=== PATIENT | female | born 1965 | race Caucasian/White ===

== ENCOUNTER 2017-09-03 10:57 | Emergency (ER) | payer BC ==
[~2017-09-03] VITALS: Ht 172.7 cm; Wt 68.0 kg
--- NOTE | 2017-09-03 11:33 | Urgent Treatment Center Report ---
History of Present Issue Date/Time Seen by Provider 09/03/17 1125 Visit Reason Pt arrived:Walked Presenting Problem:PT ADVISES THAT SHE WAS DX SUNDAY WITH BRONCHITIS AND FEELS THAT SHE NEEDS A NEB TREATMENT RATHER THAN THE INHALER SHE HAS BEEN USING Location if Accident: Onset of symptoms date/time:/ or onset unknown for:MEDICAL HX UNKNOWN Have you (or family members/close friends) recently traveled outside the [place]? N If Yes, where/when: Have you had exposure to infectious disease within the past month? TB? Other? Specify: c/o need for albuterol neb. Doesn't want anything else, "just a neb please". Reports seen at [facility] , 4 days ago, dx bronchial pneumonia. No CXR and does not want a CXR today. Adament only neb treatment and doctor's excuse for work today. Improving w/ steroid injection, steroid pills, antibiotic and inhaler. "I have had this before and just feel like one neb treatment would help me improve even faster". Tried returning to clinic today but they do not administer neb treatments. Nonsmoker. Source patient Exam Limitations no limitations ALLERGIES Coded Allergies: No Known Allergies (09/03/17) History Medical History General CAD? No Angina: No MD: No Hypertension? No Hyperlipidemia? No CHF? No DVT? No PE? No COPD? No Asthma? No Anemia? No GERD? No Gastric ulcers? No GI Bleed? No Hernia? No Thyroid Problems? No Hypothyroidism? No CVA? No Seizures? No Diabetes? No Renal Insuffiency? No UTI? No Stones? No BPH? No GB Disease: No Nephritic Syndrome? No Asplenia? No Hepatitis? No Sickle Cell Disease? No Arthritis? No Migraines? No Cataracts? No Glaucoma? No MRSA? No HIV? No TB? No Anxiety? No Depression? No Cancer? No More? No Immunization HX DT/Tetanus Unknown Surgical Hx Previous Surgery?N Social History Smoking Hx Smoker: Never Smoker Tobacco: No Alcohol Alcohol: No Review of Systems All Other Systems Reviewed and Negative Constitutional see HPI, denies fever, denies malaise Eyes denies drainage ENT denies: ear pain, nose discharge, nose congestion, throat pain. Respiratory see HPI Cardiovascular denies chest pain Musculoskeletal denies joint pain Skin denies rash Psychiatric/Neurological denies headache Physical Exam Vital Signs Vital Signs Date Time Temp Pulse Resp B/P Pulse O2 O2 Flow FiO2 Ox Delivery Rate 09/03 1117 97.9 72 20 131/83 97 General Appearance normal appearance, no apparent distress, active Eye Exam - bilateral eye normal exam Ear, Nose, Throat normal ENT inspection Neck non-tender, supple Respiratory Status Yes: chest symmetrical, non productive cough. No: respiratory distress, use of accessory muscles, productive cough. Lung Sounds anterior: lungs clear. posterior: lungs clear. bilateral: lungs clear. Cardiovascular regular rate/rhythm, no peripheral edema, no murmur Neurologic alert, oriented x 3 Skin normal color, warm/dry Lymphatic no adenopathy Medical Decision Making LABS/Meds/Orders Pt receiving controlled substance in ED? No Results/Orders Current Medication Orders Sig/Michael Start time Last Medication Dose Route Stop Time Status Admin Albuterol 2.5 MG ONCE ONE 09/03 1145 DC INH 09/03 1146 Orders Procedure Date/time Status RT REQUEST ALBUTEROL NEB 09/03 1132 Active Departure Departure Time of Disposition 1206 Disposition DC Home or Self Care(routine) Clinical Impression Primary Impression: Bronchitis Condition STABLE Referrals NO REFERRAL Follow up with your primary care doctor if you don't continue to see improvement with previously prescribed medications. Patient Instructions DI for Acute Bronchitis Additional Instructions * Continue previously prescribed medications * Be sure to follow up if you don't continue to improve. * Inhaler every 4-6 hours as needed like we discussed. If unsure how to use it, ask pharmacist to demonstrate how. Should help open airways and improve cough, wheezing, shortness of breath. Discharge Counseling Counseled pt/family regarding diagnosis, medications/RX, home care, follow up needs at 123
[2017-09-03 12:39] VITALS: BP 129/82
== END 2017-09-03 12:40 | disposition home or self-care (01) ==
LOC: UTC 10:57
DX: J40 Bronchitis, not specified as acute or chronic (principal)